=== PATIENT | male | born 1940 | race Caucasian/White ===

== ENCOUNTER → 2020-01-25 13:05 | Outpatient (CLI) | payer MEDICARE, SELFPAY ==
--- NOTE | 2020-01-25 | DI.MG.S_ITS ---
MALE BILATERAL DIGITAL DIAGNOSTIC MAMMOGRAM 3D/2D: 01/25/2020 CLINICAL: Left breast tenderness and lump. Baseline mammogram. No prior exams were available for comparison. There is a 2.6 cm x 2.2 cm x 1.9 cm irregular area of fibroglandular tissue in the left breast central to the nipple in the retroareolar region. This correlates as palpated and to the area of reported pain. No other significant masses, calcifications, or other findings are seen in either breast. IMPRESSION: INCOMPLETE: NEEDS ADDITIONAL IMAGING EVALUATION The 2.6 cm irregular area of fibroglandular tissue in the left breast is most compatible with gynecomastia. A targeted ultrasound is recommended to exclude underlying mass and will immediately follow. This exam was interpreted at Station ID: [id number]. Electronically Signed By: Ankit Kumar M.D. slc/:01/25/2020 13:46:31 ACR BI-RADS Category 0: Incomplete [id number]
--- NOTE | 2020-01-25 | DI.US.S_ITS ---
LIMITED ULTRASOUND OF LEFT BREAST: 01/25/2020 CLINICAL: Palpable left breast lump. Comparison is made to exam dated: 01/25/2020 [facility]. Color flow and real-time ultrasound of the left breast were performed. Estevez scale images of the real-time examination were reviewed. There is a benign area of fibroglandular tissue in the left breast central to the nipple in the retroareolar region. No retroareolar mass. IMPRESSION: BENIGN No left breast retroareolar mass. Benign left breast gynecomastia corresponding to the palpable abnormality. Clinical follow-up for gynecomastia is recommended. Exam findings were conveyed to the patient. This exam was interpreted at Station ID: [id number]. Electronically Signed By: Ankit Kumar M.D. slc/:01/25/2020 14:46:46 letter sent: Clinical Evaluation Ultrasound BI-RADS: 2 Benign
== END ==
PROVIDERS: Family Provider Family Medicine; PCP Family Medicine; Referring Provider Family Medicine; Visit Provider Family Medicine
DX: R92.8 Other abnormal and inconclusive findings on diagnostic imaging of breast (principal); N64.4 Mastodynia; N62 Hypertrophy of breast
CPT/HCPCS: 76642; 77066; G0279

== ENCOUNTER → 2020-05-02 08:43 | Outpatient (CLI) | payer MEDICARE, SELFPAY ==
[2020-05-02 11:47] LABS: COVID19 -Nasal RAPID Negative (Negative)
== END ==
PROVIDERS: Family Provider Family Medicine; PCP Family Medicine; Visit Provider Physician Assistant
DX: Z11.59 Encounter for screening for other viral diseases (principal)
CPT/HCPCS: 87635

== ENCOUNTER 2020-05-04 11:30 | Inpatient (IN) | payer MEDICARE, SELFPAY ==
[2020-04-19 13:01] VITALS: BMI 23.8
[2020-05-04] VITALS (18 sets, daily range): BP systolic 84–127; BP diastolic 45–81; PULSE 74–96; RESP 10–18; TEMP 35.8–36.7; O2SAT 93–99; BMI 21.2
--- NOTE | 2020-05-04 06:00 | DI.RAD.S_ITS ---
PROCEDURE: XR SHOULDER LT 1V INDICATIONS: post op total shoulder TECHNIQUE: 1 views of the shoulder were acquired. COMPARISON: [facility], CT, CT SHOULDER LEFT WITHOUT CONTRAST, 03/25/2020, 13:57. FINDINGS: Bones: Left shoulder humeral head arthroplasty is in the expected position. Degenerative change at the glenoid and AC joint appreciated. No unexpected fractures. No dislocation. No suspicious bony lesions. Visualized ribs appear intact. Soft tissues: No suspicious soft tissue calcifications. Medial postsurgical change the left upper arm. IMPRESSION: Satisfactory appearance of the left humeral head arthroplasty. Dictated by: Ankit Kumar M.D. on 05/04/2020 at 16:13 Approved by: Ankit Kumar M.D. on 05/04/2020 at 16:15
[2020-05-04] MEDS: ACETAMINOPHEN 325 MG TABLET 975 MG PO ×2 (12:18→20:26)
[2020-05-04] MEDS: CELECOXIB 200 MG CAPSULE PO (12:19)
[2020-05-04] MEDS: LACTATED RINGERS 1,000 ML 42 ML IV ×2 (12:20→15:21)
[2020-05-04] MEDS: PREGABALIN 75 MG CAPSULE PO (12:20)
--- NOTE | 2020-05-04 13:00 | PM.PREOP ---
Pre-operative Note COVID-19 COVID-19 status: Negative Result date/Date tested (Pos, Neg/Pending): 05/02/20 Interval Note History & Physical reviewed/Exam performed by Physician: Yes Changes to H&P: No
--- NOTE | 2020-05-04 13:29 | SUR.PREOP ---
Block start time 1315 [] . Monitoring initiated and maintained throughout procedure. Oxygen and medications given per anesthesiologist instructions. Patient remained stable throughout procedure, no adverse reactions noted. Block end time [1330].
[2020-05-04] MEDS: CEFAZOLIN 2 GM/100 ML FROZ.PIGGY IV (13:30)
[2020-05-04] MEDS: TRANEXAMIC ACID 1,000 MG VIAL 1000 MG INJ ×2 (13:48→15:19)
[2020-05-04] MEDS: BUPIVACAINE 0.5% W/ EPI (PF) 30 ML VIAL 10 ML INJ (14:00)
--- NOTE | 2020-05-04 14:04 | PM.PROC.1 ---
Procedures Date/Time Date of procedure: 05/04/20 Time of procedure: 13:15 General Procedure description: Ultrasound guided interscalene brachial plexus nerve block for post op pain control after left total shoulder arthroplasty by Dr. Silverio. Risk and benefits of procedure discussed with patient. ASA monitoring applied to patient. O2 given via nasal cannula. 1 mg Versed and 50 mcg fentanyl given for procedural sedation. Skin site was prepped with chlorhexidine and allowed to fully dry. Sterile gloves, mask, hat and probe cover were used to maintain sterility. 2% lidocaine and 30ga needle was used to make a small skin wheal at needle insertion site. Under ultrasound guidance, a 21ga 50mm Pajunk needle was directed into the interscalene groove (middle/anterior scalenes) near the brachial plexus. Patient reported no parasthesias. After negative aspiration, 20 mL 0.5% ropivicaine and 10mg dexamethasone were injected around brachial plexus. Patient tolerated procedure well.
--- NOTE | 2020-05-04 14:12 | SUR.OPER ---
Beach chair with Schlein shoulder positioner. Lower body on padded OR bed. Head in foam padded head cradle, secured with straps. Non-operative arm secured <90 degrees abduction. Pillow under knees. Safety belt at thigh. Cloth tape over blanket over lower legs.
[2020-05-04] MEDS: THROMBIN (RECOMBINANT) 5,000 UNIT VIAL 5000 UNIT TOP (14:30)
--- NOTE | 2020-05-04 15:37 | PM.OP.1 ---
Operative Date/Time/Diagnoses Date of procedure: 05/04/20 Time of procedure: 15:37 Pre-op diagnosis: Left shoulder osteoarthritis Post-op diagnosis: other (Left shoulder supraspinatus rotator cuff tear) Procedure & Clinicians Procedure: 1. Left total shoulder arthroplasty 2. Open repair of left supraspinatus rotator cuff tear Same procedure as scheduled: No (Rotator cuff tear done in addition to scheduled arthroplasty.) Indications: The patient has had progressively worsening left shoulder pain with radiographic changes consistent with arthritis. Non-operative management has failed and the patient has requested total shoulder replacement. The risks, benefits and alternatives to surgery were discussed with the patient prior to proceeding. Risks discussed included, but were not limited to, failure to relieve pain, stiffness, infection, nerve damage, deep venous thrombosis, pulmonary embolism, stroke, coma, heart attack, permanent paralysis and , as well as the potential need for eventual revision of the prosthetic. Surgeon: Chau Silverio Botany Professor: Ilene Moy Click Yes if Unassisted: No Anesthesia Type: General, Peripheral nerve block and Local Operative Notes Findings: Severe left shoulder osteoarthritis with 1 cm leading edge supraspinatus rotator cuff tear. Closure Type: primary Specimen(s): none sent Prosthetic devices, grafts, tissues, transplants, or devices: Implants used in this procedure manufactured by the [employer] and included a Eclipse stemless total shoulder system with a large cage screw, a 47 mm trunion, a 47/20 humeral head and a large [employer] VaultLock glenoid. In addition 4 Ar[employer] Swivelock anchors and 1 [employer] Corkscrew anchors were used to repair the supraspinatus and subscapularis tendons. Applied: implant(s) Estimated Blood Loss (mL): 100 Blood products transfused: none Procedure in detail: The patient was seen in the pre-operative area, where the patient identified the left shoulder as the operative site and this was marked with my initials. The patient received pre-operative antibiotics, underwent an interscalene block, and was taken to the operating room and placed on the operative table in the supine position. After satisfactory anesthesia, a full ?time out? was performed. The patient was repositioned in the ?beach chair? position using a dedicated positioner. All pressure points were well padded, and the knees were slightly bent to prevent tension on the sciatic nerves. The left arm was prepared from the fingers to the base of the neck with ChloroPrep in the usual fashion and draped through sterile drapes. An approximately 10 cm incision was created, starting at the clavicle above the coracoid process and extended towards the deltoid insertion. The deltopectoral interval was used to access the shoulder. The cephalic vein was taken medially. A self retaining retractor was placed. The upper centimeter of the pectoralis major tendon was released. The ?three sisters? were identified and cauterized. The axillary nerve was palpated and protected throughout the case. The biceps was released from its groove and tenodesed over the top of the pectoralis major tendon. The subscapularis was released from the lesser tuberosity with a subscapularis peel and tagged for later repair. The shoulder was dislocated and a cutting guide was used for the proximal humeral osteotomy in 30 degrees of retroversion. After removing all peripheral osteophytes, the trunion was sized. The central starter hole for the trunion was created. A proximal humeral protector was then placed. We then removed the self-retaining retractor and placed retractors to access the glenoid. The subscapularis was released with a ?360 degree release? with care being taken to protect the axillary nerve with the inferior portion of this procedure. The remnant of labrum and biceps stump were removed. The appropriate size reamer was chosen with the glenoid sizer, and the guide pin placed. The glenoid was appropriately reamed. The central hole was enlarged. The guide for the peripheral holes was used to create the superior hole and the inferior keel hole. The trial glenoid was placed with good stability. We then cemented the final implant into place after irrigating the peg holes and drying them with thrombin-soaked Gelfoam. The central peg was coated with bone graft for ingrowth. We returned our attention to the humerus, the proximal humeral protector was removed. The trunion was impacted into place and the cage screw placed through the trunion. Trial head was applied. Stability was checked with 50% posterior translation with spontaneous reduction, 45? of external rotation with the subscapularis held in the repaired position and 60? of internal rotation in the ?scarecrow position. This was felt to be satisfactory and the appropriate humeral head implant was opened and impacted into position. The joint was irrigated and the subscapularis was repaired using a ?speed bridge? technique. Initially we used a single [employer] corkscrew anchor which was double threaded to repair the supraspinatus tear to the greater tuberosity. The double row repair of the subscapularis was then performed which gave excellent reapproximation of the subscapularis to the lesser tuberosity. The top of the subscapularis was closed to the leading edge of the supraspinatus with a figure of 8 #2 TiCron to close the rotator interval. The deltopectoral interval was closed with interrupted 0 Vicryl. The subcutaneous layer was closed with 3-0 Vicryl, and the skin with a running 3-0 V-Lock suture and SteriStrips. An Aquacel Ag dressing was applied, the patient?s arm was placed in a sling, and the patient was taken to recovery having tolerated the procedure well. Complications: none Post-operative Condition: stable Disposition: PACU Plan for aftercare: The patient will be maintained on a standard total shoulder replacement protocol with passive range of motion limited to 90 degrees forward flexion, 0 degrees external rotation at the side, 0 degrees abduction and internal rotation to the body. The patient will receive aspirin and sequential compression devices for DVT prophylaxis. The patient will be discharged home when safe for the home environment, likely tomorrow.
[2020-05-04] MEDS: LACTATED RINGERS 1,000 ML 125 ML IV (18:25)
[2020-05-04] MEDS: TAMSULOSIN 0.4 MG CAPSULE PO (20:26)
[2020-05-04] MEDS: DOCUSATE 100 MG CAPSULE PO (20:26)
[2020-05-04] MEDS: dilTIAZem CD 120 MG CAP PO (20:26)
--- NOTE | 2020-05-05 00:37 | PC.NURSE ---
Pt reports weakness and numbness in L arm that is slowly improving.
[2020-05-05 05:30] VITALS: BP 104/66; PULSE 78; RESP 18; TEMP 36.5; O2SAT 95
[2020-05-05 06:19] LABS: Hemoglobin 13.5 g/dL (13.5-17.5); Mean Corpuscular HGB Conc 32.9 % (30-36); Mean Corpuscular Hemoglobin 31.7 PG (26-34); Mean Corpuscular Volume 96.5 fL (80-100); Platelet Count 220 X10^3/uL (150-400); Red Blood Cell Count 4.25 X10^6/uL (4.5-5.9); Red Cell Distribution Width 12.7 % (11.6-14.8); White Blood Cell Count 19.1 X10^3/uL (4.5-11.0)
--- NOTE | 2020-05-05 07:49 | PM.DS.1 ---
History of Present Illness History of Present Illness Date Patient Seen: 05/05/20 Time Patient Seen: 07:49 Chief complaint: Left Total Shoulder Arthroplasty Discharge Providers Provider Date of admission: 05/04/20 11:30 Primary care physician: Harrison Hernandez MD Consults: 05/04/20 17:00 Consult to Discharge Planning Routine Comment: Consult to Physical Therapy Evaluate & Treat Comment: Physician Instructions: Evaluate and Treat Discharge provider: Ilene Moy PA-C Exam Vital Signs (past 8 hours): - 05/04/20 23:59 05/05/20 05:30 Temperature 97.7 F 97.7 F Pulse Rate 96 H 78 Respiratory Rate 18 18 Blood Pressure 117/78 104/66 Pulse Oximetry 95 95 Oxygen Delivery Method Room Air Oxygen Flow Rate 0 Objective Labs Result Diagrams: 05/05/20 06:01 Labs: Laboratory Results - last 24 hr 05/05/20 06:01 WBC 19.1 H RBC 4.25 L Hgb 13.5 Hct 41.0 MCV 96.5 MCH 31.7 MCHC 32.9 RDW 12.7 Plt Count 220 PFSH Medical History (Updated 04/19/20 @ 13:18 by Chiquita Miller RN) A-fib Enlarged prostate Hearing impaired History of prosthetic unicompartmental arthroplasty of both knees HTN (hypertension) Neuropathy Osteoarthritis Pseudogout Psoriasis Surgical History (Updated 04/19/20 @ 13:13 by Chiquita Miller RN) History of surgery History of vasectomy Social History household members: spouse Smoking Status: Former smoker alcohol intake: former Discharge Plan Discharge Plan Patient Disposition: Home Discharge orders & Medications Prescriptions: New acetaminophen 325 mg Tablet 975 mg PO TID Qty: 40 RF: 0 docusate sodium [DOK] 100 mg Capsule 100 mg PO BID Qty: 40 RF: 0 ibuprofen 600 mg Tablet 600 mg PO Q6HR PRN (Reason: Fever/Mild Pain (1-3)) Qty: 40 RF: 0 oxycodone 5 mg Tablet 5 mg PO Q3HR PRN (Reason: Pain, Moderate (4-6)) Qty: 60 RF: 0 Continued aspirin 81 MG tablet,chewable 162 mg PO QDAY Qty: 30 RF: 0 diltiazem HCl 120 MG capsule,extended release 24hr 120 mg PO BID Qty: 180 RF: 0 tamsulosin 0.4 mg Capsule 0.4 mg PO BEDTIME RF: 0 ibuprofen 200 mg Tablet 200 mg PO DAILY PRN (Reason: Pain) RF: 0 Follow up/Referrals: Chau Silverio MD [Physician] - Harrison Hernandez MD [Primary Care Provider] - Diet/Activity/Treatments Diet: Diet as Tolerated Activity: You may use his left hand in front of your body below shoulder level. Lift no more than 1 lb with the left arm. You may do pendulum exercises with your left arm. Cold/Heat Therapy: Apply ice to the shoulder for 15 minutes of every hour as tolerated. Allow skin to return to room temp between icing. Skin/Wound/Dressing Care Report to your healthcare provider any signs of infection, such as:: chills, fever, night sweats, increased pain, unusual drainage and unusual redness Dressing: Dressing should remain in place until your 2 week postop visit. Call the office if dressing becomes saturated. Visit Report/Discharge Packet Instructions: DI for Prescription Opioid Use, DI for Shoulder Replacement Stand Alone Forms: Surgery Discharge Discharge Data Primary Care Provider: Harrison Hernandez Quality VTE Deep Vein Thrombosis/Pulmonary Embolism Present on Admission: No
[2020-05-05 08:00] VITALS: BP 100/62; PULSE 83; RESP 16; TEMP 36.7; O2SAT 94
[2020-05-05] MEDS: DOCUSATE 100 MG CAPSULE PO (08:55)
[2020-05-05] MEDS: ASPIRIN 81 MG CHEW TAB 162 MG PO (08:55)
[2020-05-05] MEDS: dilTIAZem CD 120 MG CAP PO (08:55)
[2020-05-05] MEDS: ACETAMINOPHEN 325 MG TABLET 975 MG PO (08:56)
--- NOTE | 2020-05-05 09:31 | PC.NURSE ---
Addendum entered by Georgiana Ortega R.N. 05/05/20 10:02: Empty beer can found in patients bathroom. They have discharged to [facility]. Found after they left. Noted....CLL,RN Original Note: Assess- Patient has a sling to his r.shoulder with an aquacel in place, worked with pt and is ready to go home to [place]. [facility] wnl, patient states that his fingers are still a bit numb but this is resolving. Given Tylenol for discomfort and helpful. Priority board given to patient for ferry ride home.
--- NOTE | 2020-05-05 10:59 | PT.IIE ---
Current Diagnoses Primary osteoarthritis, left shoulder (05/04/20) Surgery Performed Operation Date: 05/04/20 13:15 Actual Procedures p Total Shoulder Arthroplasty and open rotator cuff repair(Left) - Chau Silverio MD Surgical History (Last Updated 04/19/20 @ 13:13 by Chiquita Miller, RN) History of surgery History of vasectomy Medical History (Last Updated 04/19/20 @ 13:18 by Chiquita Miller, RN) A-fib Enlarged prostate Hearing impaired History of prosthetic unicompartmental arthroplasty of both knees HTN (hypertension) Neuropathy Osteoarthritis Pseudogout Psoriasis Physical Therapy Inpatient Evaluation/Re-Eval M1 PT/OT-IP Prior Functional Status Start: 05/05/20 08:44 Freq: NEEDED Status: Discharge Protocol: Document 05/05/20 10:54 DE (Rec: 05/05/20 11:20 DE [id number]) Medical Review Prior Functional Status Medical History Reviewed Yes Diet/Fluid Consistency Regular Communication WNL. No deficits noted. Able to make needs known. Mobility and Gait IND for all mobility and amb without AD or limitations at baseline. Activities of Daily Living and IADL's IND for all IDLs and IADLs including driving at baseline. Prior Functional Level (Other details) Hx of pseudogout affecting his L ankle. Social History Household Members spouse Living Arrangements House Number of Floors (Floors) Two Floors Number of Stairs To Enter/Railing? 2 SHAINA with no railing. 10 steps to upstairs bedroom with no railing but wall L side going up. Home Environment Standard Height Toilet,Walk in Shower Employment Status Retired Additional Social History Comment Pt lives with spouse who will be available at home most of the time to assist if needed. Family members also live closeby. Pt has a separate shower place, which is ~150 ft away from the main house. There is 1 step to get to the shower place. M2 PT-IP Current Condition Start: 05/05/20 08:44 Freq: NEEDED Status: Discharge Protocol: Document 05/05/20 10:54 DE (Rec: 05/05/20 11:20 DE [id number]) Physical Therapy Current Condition Current Condition Evaluation Date 05/05/20 Treatment Diagnosis L total shoulder replacement; Difficulty with performing ADLs. Onset Date 05/04/20 Precautions Shoulder Precautions Sling,Internal Rotation to Body,No External Rotation,No Abduction,Forward Flexion to 90 degrees,Pendulums M3 PT-IP Subjective Start: 05/05/20 08:44 Freq: NEEDED Status: Discharge Protocol: Document 05/05/20 10:54 DE (Rec: 05/05/20 11:20 DE [id number]) Subjective Physical Therapy Visit Type Type Initial Evaluation Visit Start Time 09:08 Visit Stop Time 09:32 Total Visit Minutes 24 Notes SPT Barrera led session under direct supervision of PT Hoa. Number of INSPECTOR REPAIRER [place] Visits 0 Physical Therapy Visit Comments Patient Comments Pt is agreeable to do PT. M4 PT-IP Mobility and Gait Start: 05/05/20 08:44 Freq: NEEDED Status: Discharge Protocol: Document 05/05/20 10:54 DE (Rec: 05/05/20 11:20 DE [id number]) PT-Bed Mobility Assessment Supine to Sit Supine to Sit Standby Assistance PT-Transfer Assessment Sit to and From Stand Sit to and from Stand Standby Assistance Equipment Transfer Assistive Device None,Gait Belt Orthotic/Prosthetic Devices or Brace: No Transfers Transfer Destination Chair Transfer Technique Amb Transfer Ability Level of Assist Standby Assistance Comments Mobility Comments Pt was lying supine in bed with elevated EOB. Spouse was present at bedside. Pt completed supine to sit at R side EOB from flat bed with SBA. Pt then performed sit to stand and amb ~5 ft to the sink with SBA. In standing in front of the mirror, sling fitting and pt education were provided. Pt then amb ~120 ft in the hallway to the stairs and back to the room with SBA. Pt demonstrated normal step- through gait pattern without any gait deviations. Pt performed 3 steps up and down x3 without railing with CGA. Pt used step-over gait pattern . Pt was steady without any LOB throughout amb and stair climbing. Pt amb back to the room and sat down in the chair with SBA. Call light placed within reach. Spouse remained in the room. Gait Assessment Gait Gait Assistance Required: Standby Assistance Distance (Feet) 120 Assistive Devices Assistive Device None,Gait Belt Orthotic/Prosthetic Devices or Brace: No Gait Deviations General Gait Pattern Within Normal Limits Comments Gait Comments See mobility comments. Stair Climbing Assessment Evaluation Level of Assist On Stairs Contact Guard Assistance Devices Stair Climbing Assistive Devices None Technique/Endurance Stair Climbing Direction Ascend and Descend Stair Climbing Technique Step Over Step Number of Steps Climbed 3 Query Text: Stair Climbing Set # Repetitions (reps) 3 Comments Stair Climbing Comments See mobility comments. PT-Balance Assessment Sitting Balance and Reactions Static Sitting Balance Ability Normal Dynamic Sitting Balance Ability Normal Standing Balance and Reactions Static Standing Balance Ability Normal Dynamic Standing Balance Ability Good M5 PT-IP Objective Assessments Start: 05/05/20 08:44 Freq: NEEDED Status: Discharge Protocol: Document 05/05/20 10:54 DE (Rec: 05/05/20 11:20 DE [id number]) Orientation Orientation/Cognition Level of Alertness Alert Orientation Name,Age,Birthday,Month,Date, Year,Day of Week,Place, Situation Language Function Ability No Deficits Noted Safety Awareness Understands Safety Issues Memory Description No Deficits Noted Gross Range of Motion Upper Extremity ROM Assessment Left Impaired Strength Upper Extremity Strength Assessment Left Impaired Coordination Assessment Gross Coordination Gross Coordination WNL Sensation Assessment Sensation Gross Sensation WNL Light Touch Intact Muscle Tone Muscle Tone WNL Yes M6 PT-IP Treatment Start: 05/05/20 08:44 Freq: NEEDED Status: Discharge Protocol: Document 05/05/20 10:54 DE (Rec: 05/05/20 11:20 DE [id number]) Physical Therapy Treatment Exercises Exercises Shoulder Pendulums,Elbow Flexion/Extension,Wrist ROM, Hand ROM Education Education Provided Precautions,Post-Op Packet, Safety Other Treatments Other Treatment Performed Pt was educated on shoulder precautions, safety, and role of PT. M7 PT-IP Assessment and Plan Start: 05/05/20 08:44 Freq: NEEDED Status: Discharge Protocol: Document 05/05/20 10:54 DE (Rec: 05/05/20 11:20 PR [id number]) PT Summary Assessment and Plan Potential Rehabilitation Potential Excellent Status of Condition at Evaluation Stable Summary Impairments Pain,ROM,Strength,Balance,Bed Mobility,Transfers,Gait, Activity Tolerance Progress Towards Goals Safe For Discharge Assessment Summary Ramses is a 79 yo male POD1 s/p L total shoulder replacement with hx of pseudogout affecting his L ankle. At baseline, pt was IND for all mobility, amb, and ADLs without AD or limitations. On evaluation, pt was CGA-SBA for all mobility, transfers, amb, and stair climbing. Pt amb ~ 120 ft and performed 3 steps x3 without railing. No unsteadiness or LOB was observed throughout session. PT anticipates pt will be safe to d/c home with assistance. Pt will benefit from outpatient PT to improve shoulder ROM and strength in the future. Frequency of Treatment Frequency Of Treatment Discharge Recommendations To Nursing Amount of Assist Needed Standby Assistance Discharge Recommendations PT Discharge Recommendations Home with Assistance, Outpatient PT Equipment Needed for Home Before PT recommended shower chair or Discharge stool to be able to rest his LUE during shower. Transportation Needs at Discharge Private Vehicle Treatment was provided by Barrera Ozuna SPT and supervised by Hoa Blanton, PT. I personally reviewed this note and agree with its contents.
--- NOTE | 2020-05-05 11:01 | CM.IDA ---
Initial DCP Assessment Note Pt is a 79 yo male, resident of [place], now POD#1 from left shoulder surgery w/ Dr Silverio PCP: Harrison Hernandez Payer: ANNEMARIE Reviewed chart, DC order from Ortho has already been initiated this morning. Met w/patient to introduce role. Patient is awaiting his morning therapy session. Patient is indp. at baseline and has planned to return home w/his partner Rayne to assist as needed. Patient feels confident at this time to return home w/family to assist and denies needs from this CIRCUIT COURT CLERK this morning. No needs expected from DC planning team although will remain available in case this changes today. Genia Artis, CIRCUIT COURT CLERK
--- NOTE | 2020-05-05 16:04 | P.PN_ITS ---
Subjective Subjective Date Patient Seen: 05/05/20 Interval history: Patient is POD#1 s/p left total shoulder arthoplasty with Dr. Silverio. Pain has been controlled. He has mobilized about the room. He is voiding appropriately and tolerating a diet. Does not some residual numbness in the thum b. He denies any shortness of breath, chest pain, chills, night sweats, subjective fever, pain with urination, frequency or urgency. No complaints. Exam Vital Signs (past 8 hours): Oxygen Delivery Method Room Air Oxygen Flow Rate 0 Narrative Exam Narrative: 79 year old male resting in bed. Alert and oriented in no acute distress. Aquacel dressing in place is CDI. Patient wearing sling. Patient able to move all fingers, wrist, and elbow. Sensation intact to light touch. Palpable radial pulse. Objective Labs Result Diagrams: 05/05/20 06:01 Labs: Laboratory Results - last 24 hr 05/05/20 06:01 WBC 19.1 H RBC 4.25 L Hgb 13.5 Hct 41.0 MCV 96.5 MCH 31.7 MCHC 32.9 RDW 12.7 Plt Count 220 PFSH Medical History A-fib Enlarged prostate Hearing impaired History of prosthetic unicompartmental arthroplasty of both knees HTN (hypertension) Neuropathy Osteoarthritis Pseudogout Psoriasis Surgical History History of surgery History of vasectomy Social History household members: spouse Smoking Status: Former smoker alcohol intake: former Assessment & Plan Assessment & Plan narrative: -Patient is POD# 1 s/p total shoulder arthroplasty, doing well. -Elevated WBC this morning of 19.1. Patient is afebrile, feeling well and no findings on exam or symptoms to suggest infection so this is likely due to a mixture of stress reaction from surgery and administration of steroid. Patient was advised to monitor for signs of infection such as fevers, chills, night sweats and report any symptoms. -Continue home dose of ASA for DVT prophylaxis. Prescription for Oxycodone provided for postoperative pain control. -Mobilize with PT today. Reviewed activity restrictions and corrected his sling use. His is available as caregiver at home. -Discharge to home today. Follow up outpatient in 2 weeks as scheduled. Quality VTE Deep Vein Thrombosis/Pulmonary Embolism Present on Admission: No
== END 2020-05-05 09:55 | disposition home or self-care (01) | DRG 483 ==
PROVIDERS: Admitting Provider Orthopaedic Surgery; Family Provider Family Medicine; PCP Family Medicine; Referring Provider Orthopaedic Surgery; Visit Provider Orthopaedic Surgery
PROC: 0RRK0JZ Replacement of Left Shoulder Joint with Synthetic Substitute, Open Approach (ICD-10-PCS; CPT 23472; principal; 2020-05-04 13:15)
DX: M19.012 Primary osteoarthritis, left shoulder (principal); I48.91 Unspecified atrial fibrillation; N40.1 Benign prostatic hyperplasia with lower urinary tract symptoms; M11.20 Other chondrocalcinosis, unspecified site; M75.112 Incomplete rotator cuff tear or rupture of left shoulder, not specified as traumatic; D72.829 Elevated white blood cell count, unspecified; Z11.59 Encounter for screening for other viral diseases
CPT/HCPCS: 36415; 64450; 73030; 85027; 87635; 97161; C1776; J0690; J1100; J2250; J2405; J2704; J3010

== ENCOUNTER → 2020-11-17 10:07 | Outpatient (CLI) | payer MEDICARE, SELFPAY ==
[2020-05-04 16:51] VITALS: BMI 21.2
--- NOTE | 2020-11-17 | DI.ECHO.S_ITS ---
[place] +---------+ [facility] +---------+ : : [address] : [address] : : : : [id number] : : : : Phone: [phone] +---------+ Echocardiogram Report + + :Name: CLEMENTINA ALCANTAR Study Date: 11/17/2020 Height: 69 in : :[facility] ReadingLocation: Weight: 150 lb : : Gender: Male BSA: 1.8 m2 : :: 1940 Age: 80 yrs BP: 117/77 mmHg: :Reason For Study: Mitral Valve- Regurgitation : :Ordering Physician: Kurt : :Jackson Murry Performed By: Daniel Lewis : :Referring: KURT MURRY : + + Interpretation Summary 1) Normal left ventricular size with mildly to moderately reduced systolic function (EF 40-45%). 2) Normal right ventricular size and function. 3) Severe left atrial enlargement. 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 5) There is severe mitral regurgitation that is anteriorly directed (towards the interatrial septum). 6) The right ventricular systolic pressure is estimated to be at least 26 mmHg based on an estimated right atrial pressure of 3 mm Hg. 7) No prior Echo available for comparison. Procedure: A two-dimensional transthoracic echocardiogram with color flow and Doppler was performed. The study quality was technically adequate. There is no prior echocardiogram noted for this patient. The patient was in atrial fibrillation with heart rates between 70-87 bpm during the exam. Left Ventricle: The left ventricle is normal in size and wall thickness. Left ventricular systolic function is mild to moderately reduced. The ejection fraction is estimated to be 40-45%. There is moderate global hypokinesis of the left ventricle. Diastolic function could not be accurately assessed due to confounding valvular disease. Right Ventricle: The right ventricle is normal in size and function. Atria: The left atrium is severely dilated. Right atrial size is normal. There is no Doppler evidence for an interatrial shunt. Mitral Valve: The mitral valve leaflets appear mildly thickened, but open well. 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 There is severe mitral regurgitation. The mitral regurgitant jet is eccentrically directed. The mitral regurgitant jet is anteriorly directed, which is consistent with posterior leaflet pathology. Flow reversal noted in pulmonary veins consistent with significant mitral regurgitation. Aortic Valve: There is mild aortic valve sclerosis. There is no aortic valve stenosis. There is trace aortic regurgitation. Tricuspid Valve: The tricuspid valve is normal in structure and function. There is mild tricuspid regurgitation. The right ventricular systolic pressure is estimated to be at least 26 mmHg based on an estimated right atrial pressure of 3 mm Hg. Pulmonic Valve: The pulmonic valve is normal in structure and function. There is mild pulmonic regurgitation. Great Vessels: The aortic root is normal size. The dimensions of the ascending aorta are normal. The IVC is of normal diameter and collapses greater than 50% with a sniff. This suggests a low right atrial pressure of 3 mm Hg. Pericardium/ Pleura There is no pericardial effusion. There is no pleural effusion. MMode/2D Measurements & Calculations LVIDd: 5.2 cm LVOT diam: 2.1 cm LVIDs: 4.0 cm Ao root diam: 3.3 cm FS: 21.7 % asc Aorta Diam: 3.0 cm IVSd: 0.79 cm LVPWd: 0.96 cm LV barbosa. diameter/BSA (cm/m^2): 2.8 LV sys. diameter/BSA (cm/m^2): 2.2 LA A2 area: 30.9 cm2 RA long axis: 5.4 cm LA A4 area: 26.6 cm2 RA area: 17.5 cm2 LA length (vol): 6.0 cm RA vol: 48.1 ml LA vol: 117.0 ml RA : 26.3 ml/m2 LA vol index: 64.0 ml/m2 IVC diam: 1.4 cm TAPSE: 2.6 cm Doppler Measurements & Calculations Ao V2 max: 115.3 cm/sec LVOT Max Vinnie: 66.7 cm/sec Ao V2 mean: 81.6 cm/sec LV V1 max P.8 mmHg Ao max P.3 mmHg LV V1 VTI: 11.3 cm Ao mean P.0 mmHg ASHLY(I,D): 2.2 cm2 Ao V2 VTI: 17.7 cm ASHLY(V,D): 2.0 cm2 sev ratio: 0.64 ASHLY indexed to BSA (cm^2/m^2): 1.2 TR max vinnie: 241.2 cm/sec MR VTI: 162.8 cm TR max P.3 mmHg PA V2 max: 84.5 cm/sec PA V2 mean: 56.4 cm/sec PA mean P.4 mmHg PA pr(Accel): 51.0 mmHg SV(LVOT): 38.9 ml Reading Physician:12:08 PM
== END ==
PROVIDERS: Family Provider Family Medicine; PCP Family Medicine; Referring Provider Internal Medicine Cardiovascular Disease; Visit Provider Internal Medicine Cardiovascular Disease
DX: I08.3 Combined rheumatic disorders of mitral, aortic and tricuspid valves (principal)
CPT/HCPCS: 93306

== ENCOUNTER 2021-09-15 18:09 | Emergency (ER) | payer MEDICARE, SELFPAY ==
[2020-05-04 16:51] VITALS: BMI 21.2
[2021-09-15] VITALS (10 sets, daily range): BP systolic 114–154; BP diastolic 56–71; PULSE 44–52; RESP 14–24; TEMP 36.8; O2SAT 78–100; BMI 20.9
--- NOTE | 2021-09-15 18:27 | DI.RAD.S_ITS ---
PROCEDURE: XR CHEST 1V INDICATIONS: chest pain TECHNIQUE: One view of the chest was acquired. COMPARISON: [facility], CR, XR CHEST 1 VIEW, 06/08/2021, 17:36. [facility], CR, CHEST 2 VIEW, 08/22/2016, 12:07. FINDINGS: Surgical changes and devices: Redemonstrated sternotomy wires, valve prosthesis, left atrial appendage clip. Lungs and pleura: Lungs are clear. No pleural effusions or pneumothorax. Mediastinum: No widening of the superior mediastinum. Persistent enlargement of the cardiac silhouette. Bones and chest wall: No suspicious bony lesions. Overlying soft tissues appear unremarkable. IMPRESSION: No acute cardiopulmonary abnormality. Dictated by: Zion Campbell M.D. on 09/15/2021 at 19:38 Approved by: Zion Campbell M.D. on 09/15/2021 at 19:39
--- NOTE | 2021-09-15 18:44 | ED_ITS ---
HPI - Dizziness General Chief Complaint: Dizziness Stated Complaint: DIZZY LOW BLOOD PRESSURE Time Seen by Provider: 09/15/21 18:44 Source: patient Mode of arrival: Ambulatory History of Present Illness HPI Narrative: 80-year-old male smoker with extensive medical history including CABG, valve repair done at [facility] in May, presents with his in the chief complaint of a very brief episode of sharp and stabbing left-sided chest pain that started while at rest at about noon today. He states it lasted somewhere between 2 and 3 minutes, denies any provocation, palliation or radiation. He denies associated symptoms such as dizziness, weakness, lightheadedness or shortness of breath. He denies nausea, vomiting or diarrhea. He presented to the clinic on [place] and was encouraged to come here for evaluation. He has been taking his medications as directed and states that he was recently placed on valsartan. He denies any recent issues, any exertional symptoms or other episodes of pain since his surgery. Related Data Home Medications Medication Instructions Recorded Confirmed aspirin 81 mg chewable tablet 162 mg PO QDAY #30 ctb 03/05/16 05/04/20 ibuprofen 200 mg tablet 200 mg PO DAILY PRN 04/19/20 05/04/20 tamsulosin 0.4 mg capsule 0.4 mg PO BEDTIME 04/19/20 05/04/20 Previous Rx's Medication Instructions Recorded diltiazem HCl 120 mg 120 mg PO BID #180 tab 08/10/16 capsule,extended release 24 hr acetaminophen 325 mg tablet 975 mg PO TID #40 tab 05/05/20 docusate sodium 100 mg capsule 100 mg PO BID #40 cap 05/05/20 (DOK) ibuprofen 600 mg tablet 600 mg PO Q6HR PRN #40 tab 05/05/20 oxycodone 5 mg tablet 5 mg PO Q3HR PRN #60 tab 05/05/20 Allergies Allergy/AdvReac Type Severity Reaction Status Date / Time prednisone [PREDNISONE] AdvReac Unknown SLEEPLESSNE Verified 05/04/20 12:18 SS Review of Systems Review of Systems Narrative: GENERAL: Denies chills, fatigue, malaise, fever, sweats. HEENT: Denies sinus pain, ear pain, sore throat, difficulty swallowing, dizziness. RESPIRATORY: Denies dyspnea, cough, wheezing, hemoptysis, sputum. CARDIOVASCULAR: See HPI GASTROINTESTINAL: Denies nausea, vomiting, abdominal pain, diarrhea, constipation, melena. : Denies dysuria, frequency, incontinence, hematuria, urinary retention. MUSCULOSKELETAL: denies weakness, joint pain, or bony pain SKIN: Denies rash, skin lesions, or other NEUROLOGIC: Denies weakness, headache, numbness, change in speech, confusion, seizures, incoordination. PSYCHIATRIC: No concerning psychosocial issues. 12 point review of systems is negative except for those stated above Patient History Medical History A-fib Enlarged prostate Hearing impaired History of prosthetic unicompartmental arthroplasty of both knees HTN (hypertension) Neuropathy Osteoarthritis Pseudogout Psoriasis Surgical History History of surgery History of vasectomy Social History household members: spouse Smoking Status: Former smoker alcohol intake: former Smoking Status: Former smoker alcohol intake frequency: 0-2 drinks per day Alcohol type: beer Substance Use Type: does not use Exam Narrative Exam Narrative: GENERAL: [80] year old patient appears stated age. Well-developed patient, in mild distress. HEAD: Atraumatic. Normocephalic. EYES: Pupils equal round and reactive. Extraocular motions intact. No scleral icterus. No injection or drainage. ENT: Nose without bleeding, purulent drainage. Throat without erythema, tonsillar hypertrophy or exudate. Airway patent. NECK: Trachea midline. Non tender CARDIOVASCULAR: Slightly bradycardic but regular rhythm without murmurs, gallops, or rubs. RESPIRATORY: Clear to auscultation. Breath sounds equal bilaterally. No wheezes, rales, or rhonchi. GASTROINTESTINAL: Abdomen soft, non-tender, nondistended. EXTREMITIES: No edema or joint tenderness. BACK: Nontender without deformity or crepitance. No flank tenderness. NEURO: AOx3. SKIN: No rash or erythema of visible areas Initial Vital Signs Initial Vital Signs: Vital Signs Temperature 98.2 F 09/15/21 18:14 Pulse Rate 52 L 09/15/21 18:14 Respiratory Rate 18 09/15/21 18:14 Blood Pressure 114/56 L 09/15/21 18:14 Pulse Oximetry 100 09/15/21 18:14 Course Orders Ordered: ED Orders 09/15/21 18:21 EKG-12 Lead Stat 09/15/21 18:27 XR chest 1V Stat Complete Blood Count AUTO DIFF Stat Comprehensive Metabolic Panel Stat Lipase Stat Magnesium Stat Troponin & CK Cardiac Panel Stat EKG-12 Lead Stat 09/15/21 20:30 EKG-12 Lead Stat Vital Signs Vital signs: Vital Signs - 8 hr 09/15/21 18:14 09/15/21 18:42 09/15/21 18:45 Temperature 98.2 F Pulse Rate 52 L 50 L 47 L Respiratory Rate 18 16 18 Blood Pressure 114/56 L 129/68 Pulse Oximetry 100 78 L 99 09/15/21 19:00 Temperature Pulse Rate 46 L Respiratory Rate 14 Blood Pressure 132/66 Pulse Oximetry 100 MDM - Dizziness Lab Data Result diagrams: 09/15/21 18:27 09/15/21 18:27 Labs: Lab Results 09/15/21 09/15/21 Range/Units 18:27 18:27 WBC 7.2 (4.5-11.0) X10^3/uL RBC 3.97 L (4.5-5.9) X10^6/uL Hgb 12.1 L (13.5-17.5) g/dL Hct 35.7 L (41-53) % MCV 90.1 (80-100) fL MCH 30.6 (26-34) PG MCHC 34.0 (30-36) % RDW 15.3 H (11.6-14.8) % Plt Count 212 (150-400) X10^3/uL Neut % (Auto) 59.9 (50-75) % Lymph % (Auto) 24.2 L (25-40) % Rock % (Auto) 11.4 (3-14) % Eos % (Auto) 3.7 (2-4) % Baso % (Auto) 0.8 (0-2) % Neut # (Auto) 4300 (2200-8268) /uL Lymph # (Auto) 1700 (9271-2067) /uL Rock # (Auto) 800 (0-900) /uL Eos # (Auto) 300 (0-450) /uL Baso # (Auto) 100 (0-100) /uL Sodium 139 (137-145) mmol/L Potassium 3.8 (3.4-5.1) mmol/L Chloride 106 (98-107) mmol/L Carbon Dioxide 25 (22-32) mmol/L BUN 23 H (9-20) mg/dL Creatinine 1.03 (0.66-1.25) mg/dL Estimated GFR > 60 (>60) mL/min BUN/Creatinine Ratio 22.3 H (6-22) Glucose 110 (80-110) mg/dL Calcium 8.7 (8.4-10.2) mg/dL Magnesium 2.2 (1.6-2.3) mg/dL Total Bilirubin 0.2 (0.2-1.3) mg/dL AST 35 (17-59) IU/L ALT 21 (<50) IU/L Alkaline Phosphatase 62 (38-126) U/L Total Creatine Kinase 81 (55-170) U/L CK-MB (CK-2) TNP CK-MB (CK-2) Rel Index TNP Troponin I < 0.012 (0.01-0.034) ng/mL Total Protein 6.8 (6.3-8.2) g/dL Albumin 4.0 (3.5-5.0) g/dL Globulin 2.8 (1.7-4.1) g/dL Albumin/Globulin Ratio 1.4 (1.0-2.8) Lipase 165 (23-300) U/L ECG Data Interpretation: EKG is sinus bradycardia with regular rhythm and rate [50 ] and free of any signs of ischemia or ectopy. No ST segmental elevation or depression. No T wave inversions MDM Narrative Medical decision making narrative: Multiple causes of chest pain considered including OK, PE, pneumothorax, pneumonia, aortic dissection, and pleurisy. Patient reports no radiation, no diaphoresis, no provocation with exertion, and no vomiting Patient history, physical, labs, EKGs very reassuring. Discussed with on-call Cardiology, we sure the opinion that given his description of discomfort, normal troponin 7 or more hours after the brief episode of pain without any recurrence of pain, like of ischemic changes on EKG this is unlikely to be ischemic in nature. Other considerations including pericarditis, pulmonary embolism, pneumothorax considered but thought unlikely given history, physical, and diagnostics. Patient given extensive return precautions and questions have been answered to his apparent satisfaction Discharge Plan Departure Patient Disposition: Home Clinical Impression: Atypical chest pain Activity Restrictions/Additional Instructions: *You have been diagnosed with [atypical chest pain] *What to do: *Please continue to take your regular medications as directed. [ ] New medication prescriptions sent to your pharmacy: [ ] [ ] New medication written as a paper prescription [x ] No new medications given *Please follow up with your primary care provider in 2-3 days, call for an appointment. Let them know you were seen in the Emergency Department and that we ask that you be seen in follow up. We will electronically transmit a record of today's note if your PCP is in our system *If you do not have a primary care provider please contact the [facility] Resource line at [phone]. They will ask some questions about your medical history and help get you set up with a doctor in the community. *Return to Emergency Department if you should have any new, worsening or concerning symptoms, such as [fever greater than 101 F, shaking chills, worsening pain, persistent vomiting or other bothersome symptoms] Prescriptions: No Action aspirin 81 MG tablet,chewable 162 mg PO QDAY Qty: 30 0RF diltiazem HCl 120 MG capsule,extended release 24hr 120 mg PO BID Qty: 180 0RF tamsulosin 0.4 mg Capsule 0.4 mg PO BEDTIME 0RF ibuprofen 200 mg Tablet 200 mg PO DAILY PRN (Reason: Pain) 0RF acetaminophen 325 mg Tablet 975 mg PO TID Qty: 40 0RF docusate sodium [DOK] 100 mg Capsule 100 mg PO BID Qty: 40 0RF ibuprofen 600 mg Tablet 600 mg PO Q6HR PRN (Reason: Fever/Mild Pain (1-3)) Qty: 40 0RF oxycodone 5 mg Tablet 5 mg PO Q3HR PRN (Reason: Pain, Moderate (4-6)) Qty: 60 0RF Referrals: Harrison Hernandez MD [Primary Care Provider] -
[2021-09-15 18:53] LABS: Add Manual Diff / Slide Review NO; Basophils Absolute Auto 100 /uL (0-100); Basophils Percent Auto 0.8 % (0-2); Eosinophils Absolute Auto 300 /uL (0-450); Eosinophils Percent Auto 3.7 % (2-4); Hematocrit 35.7 % (41-53); Hemoglobin 12.1 g/dL (13.5-17.5); Lymphocytes Absolute Auto 1700 /uL (1100-4500); Lymphocytes Percent Auto 24.2 % (25-40); Mean Corpuscular Hemoglobin 30.6 PG (26-34); Mean Corpuscular Volume 90.1 fL (80-100); Monocytes Absolute Auto 800 /uL (0-900); Monocytes Percent Auto 11.4 % (3-14); Neutrophils Absolute Auto 4300 /uL (1500-7000); Neutrophils Percent Auto 59.9 % (50-75); Platelet Count 212 X10^3/uL (150-400); Red Blood Cell Count 3.97 X10^6/uL (4.5-5.9); Red Cell Distribution Width 15.3 % (11.6-14.8); White Blood Cell Count 7.2 X10^3/uL (4.5-11.0)
--- NOTE | 2021-09-15 19:05 | PC.NURSE ---
Per provider, put defib pads on patient. Pt denies chest pain symptoms at this time.
[2021-09-15 19:08] LABS: Alanine Aminotransferase 21 IU/L (<50); Albumin Globulin Ratio 1.4 (1.0-2.8); Alkaline Phosphatase 62 U/L (38-126); Aspartate Aminotransferase 35 IU/L (17-59); BUN Creatinine Ratio 22.3 (6-22); Bilirubin Total 0.2 mg/dL (0.2-1.3); Blood Urea Nitrogen 23 mg/dL (9-20); Calcium 8.7 mg/dL (8.4-10.2); Carbon Dioxide 25 mmol/L (22-32); Chloride 106 mmol/L (98-107); Creatine Kinase 81 U/L (55-170); Estimated Glomerular Filt Rate > 60 mL/min (>60); Globulin 2.8 g/dL (1.7-4.1); Glucose 110 mg/dL (80-110); HEMOLYSIS < 15 (0-50); Lipase 165 U/L (23-300); Magnesium 2.2 mg/dL (1.6-2.3); Potassium 3.8 mmol/L (3.4-5.1); Sodium 139 mmol/L (137-145); Total Protein 6.8 g/dL (6.3-8.2)
[2021-09-15 19:19] LABS: Troponin I < 0.012 ng/mL (0.01-0.034)
== END 2021-09-15 21:39 | disposition home or self-care (01) ==
PROVIDERS: Emergency Provider Emergency Medicine; Family Provider Family Medicine; PCP Family Medicine
DX: R07.89 Other chest pain (principal); Z87.891 Personal history of nicotine dependence
CPT/HCPCS: 36415; 71045; 80053; 82550; 83690; 83735; 84484; 85025; 93005; 99284

== ENCOUNTER → 2021-12-21 08:38 | Outpatient (CLI) | payer MEDICARE, SELFPAY ==
[2020-05-04 16:51] VITALS: BMI 21.2
--- NOTE | 2021-12-21 | DI.ECHO.S_ITS ---
[place] +---------+ Hospital +---------+ : : [address] : [address] : : : : [phone] : : : : Phone: [phone] : : [phone] +---------+ Echocardiogram Report + + :Name: CLEMENTINA ALCANTAR Study Date: 12/21/2021 Height: 69 in : :[facility] ReadingLocation: Weight: 145 lb : : Gender: Male BSA: 1.8 m2 : :: 1940 Age: 81 yrs BP: 118/74 mmHg: :Reason For Study: CARDIOMYOPATHY : :Ordering Physician: ALEXX, : :KURT Performed By: Triny Bender : :Referring: KURT MURRY : + + Interpretation Summary 1) Normal left ventricular size with mildly to moderately reduced systolic function (EF 40-45%). 2) Mildly enlarged right ventricle with mildly to moderately reduced systolic function. 3) The left atrium is severely dilated. 4) The mitral valve has been surgically repaired and an annuloplasty ring sewn in place (mean gradient 5.8mm Hg). Mild mitral regurgitation present. 5) The right ventricular systolic pressure is estimated to be at least 25 mmHg based on an estimated right atrial pressure of 3 mm Hg. 6) Compared to the Echo done 06/09/2021, LVEF has improved from about 35% to 40- 45% on this study. Procedure: A two-dimensional transthoracic echocardiogram with color flow and Doppler was performed. The study quality was technically adequate. Comparison is made with the echocardiogram of 06/09/2021. The patient was in sinus bradycardia with heart rates between 55-60 bpm during the exam. Left Ventricle: The left ventricle is normal in size. There is mild concentric left ventricular hypertrophy. The ejection fraction is estimated to be 40-45%. There is mild to moderate global hypokinesis of the left ventricle. Right Ventricle: The right ventricle is mildly dilated. Right ventricular systolic function is mild to moderately reduced. Atria: The left atrium is severely dilated. The right atrium is mildly dilated. There is no Doppler evidence for an interatrial shunt. Mitral Valve: The mitral valve leaflets are mildly calcified. An annuloplasty ring is noted in the mitral position. Calcified mitral apparatus. The mitral valve mean gradient is 5.8 mmHg. There is mild mitral regurgitation. Aortic Valve: The aortic valve is trileaflet. The aortic valve opens well. The aortic valve is mildly calcified. There is no aortic valve stenosis. There is mild aortic regurgitation. Tricuspid Valve: The tricuspid valve leaflets are thin and pliable. There is mild tricuspid regurgitation. The right ventricular systolic pressure is estimated to be at least 25 mmHg based on an estimated right atrial pressure of 3 mm Hg. Pulmonic Valve: The pulmonic valve leaflets are thin and pliable; valve motion is normal. There is mild pulmonic regurgitation. Great Vessels: The aortic root is normal size. The dimensions of the ascending aorta are normal. The IVC is of normal diameter and collapses greater than 50% with a sniff. This suggests a low right atrial pressure of 3 mm Hg. Pericardium/ Pleura There is no pericardial effusion. There is no pleural effusion. MMode/2D Measurements & Calculations LVIDd: 4.5 cm LVOT diam: 2.2 cm LVIDs: 3.6 cm Ao root diam: 3.4 cm FS: 20.6 % asc Aorta Diam: 3.2 cm EPSS: 1.1 cm Ao Arch Diam (Prox Trans): 2.5 cm IVSd: 0.84 cm LVPWd: 1.2 cm LV barbosa. diameter/BSA (cm/m^2): 2.5 LV sys. diameter/BSA (cm/m^2): 2.0 LA A2 area: 25.1 cm2 RA long axis: 5.7 cm LA A4 area: 24.1 cm2 RA area: 20.3 cm2 LA length (vol): 5.9 cm RA vol: 61.9 ml LA vol: 87.2 ml RA : 34.4 ml/m2 LA vol index: 48.4 ml/m2 IVC diam: 1.9 cm RVD1 (basal): 4.2 cm RVD2 (mid): 3.5 cm TAPSE: 1.2 cm Doppler Measurements & Calculations Ao V2 max: 158.5 cm/sec LVOT Max Vinnie: 87.4 cm/sec Ao V2 mean: 112.1 cm/sec LV V1 max P.1 mmHg Ao max P.0 mmHg LV V1 VTI: 20.4 cm Ao mean P.8 mmHg ASHLY(I,D): 2.1 cm2 Ao V2 VTI: 37.5 cm ASHLY(V,D): 2.1 cm2 sev ratio: 0.54 ASHLY indexed to BSA (cm^2/m^2): 1.1 MV E max vinnie: 100.1 cm/sec TR max vinnie: 236.6 cm/sec MV A max vinnie: 50.2 cm/sec TR max P.4 mmHg MV E/A: 2.0 PA V2 max: 124.5 cm/sec Med Peak E' Vinnie: 6.1 cm/sec PA V2 mean: 73.9 cm/sec E/E' med: 16.3 PA mean P.6 mmHg Lat Peak E' Vinnie: 11.4 cm/sec PA Accel Time: 0.11 sec E/E' lat: 8.8 E/e' average: 12.5 MV dec time: 0.36 sec MVA(VTI): 2.2 cm2 MV V2 mean: 57.0 cm/sec SV(LVOT): 77.7 ml MV mean P.5 mmHg MV V2 VTI: 35.4 cm Reading Physician:02:05 PM
== END ==
PROVIDERS: Family Provider Family Medicine; PCP Family Medicine; Referring Provider Internal Medicine Cardiovascular Disease; Visit Provider Internal Medicine Cardiovascular Disease
DX: I42.9 Cardiomyopathy, unspecified (principal); I08.3 Combined rheumatic disorders of mitral, aortic and tricuspid valves
CPT/HCPCS: 93306

== ENCOUNTER 2021-12-26 20:38 | Emergency (ER) | payer MEDICARE, SELFPAY ==
[2020-05-04 16:51] VITALS: BMI 21.2
[2021-12-26 20:45] VITALS: BP 119/56; PULSE 62; RESP 18; TEMP 36.6; O2SAT 96
--- NOTE | 2021-12-26 23:35 | ED.EYEPROB ---
HPI - Eye Problem General Chief complaint: Eye Problems Stated complaint: something stuck in rt eye Time Seen by Provider: 12/26/21 23:12 Source: patient Mode of arrival: Ambulatory History of Present Illness HPI Narrative: 81-year-old male former smoker with history of chronic AFib presents with his in the chief complaint of foreign body sensation in his right eye over the course of the day. He states he was walking across the grassy field when he felt something fly into his eye earlier today. He was seen and evaluated by paramedics who flushed his eye but he still feels like something is in there. He states he will need his tetanus updated. He does not wear contacts. He denies any blurred or double vision. He is otherwise well and free of complaint. He denies any possibility of metal fragments, welding or UV exposure Related Data Home Medications Medication Instructions Recorded Confirmed aspirin 81 mg chewable tablet 162 mg PO QDAY ##30 03/05/16 05/04/20 ibuprofen 200 mg tablet 200 mg PO DAILY PRN Pain 04/19/20 05/04/20 tamsulosin 0.4 mg capsule 0.4 mg PO BEDTIME 04/19/20 05/04/20 Previous Rx's Medication Instructions Recorded diltiazem HCl 120 mg 120 mg PO BID #180 tabs 08/10/16 capsule,extended release 24 hr acetaminophen 325 mg tablet 975 mg PO TID #40 tabs 05/05/20 docusate sodium 100 mg capsule 100 mg PO BID #40 caps 05/05/20 (DOK) ibuprofen 600 mg tablet 600 mg PO Q6HR PRN Fever/Mild Pain 05/05/20 (1-3) #40 tabs oxycodone 5 mg tablet 5 mg PO Q3HR PRN Pain, Moderate 05/05/20 (4-6) #60 tabs Allergies Allergy/AdvReac Type Severity Reaction Status Date / Time prednisone [PREDNISONE] AdvReac Unknown SLEEPLESSNE Verified 05/04/20 12:18 SS Review of Systems Review of Systems Narrative: GENERAL: Denies chills, fatigue, malaise, fever, sweats. HEENT: See HPI RESPIRATORY: Denies dyspnea, cough, wheezing, hemoptysis, sputum. CARDIOVASCULAR: Denies chest pain, palpitations, orthopnea, edema, GASTROINTESTINAL: Denies nausea, vomiting, abdominal pain, diarrhea, constipation, melena. : Denies dysuria, frequency, incontinence, hematuria, urinary retention. MUSCULOSKELETAL: denies weakness, joint pain, or bony pain SKIN: Denies rash, skin lesions, or other NEUROLOGIC: Denies weakness, headache, numbness, change in speech, confusion, seizures, incoordination. PSYCHIATRIC: No concerning psychosocial issues. 12 point review of systems is negative except for those stated above Patient History Medical History A-fib Enlarged prostate Hearing impaired History of prosthetic unicompartmental arthroplasty of both knees HTN (hypertension) Neuropathy Osteoarthritis Pseudogout Psoriasis Surgical History History of surgery History of vasectomy Social History household members: spouse Smoking Status: Former smoker alcohol intake: former Smoking Status: Former smoker alcohol intake frequency: 0-2 drinks per day Alcohol type: beer Substance Use Type: does not use Exam Narrative Exam Narrative: GEN: AOx3 and in mild distress EYES: Pupils are equal, round, and reactive to light and accommodation. Extraoccular muscles are intact bilaterally. There is no subconjunctival hemorrhage or exudate. Discomfort nearly completely resolved after instilling proparacaine drops in right eye. No obvious foreign body noted under Wood's lamp, upper lid everted. There is an obvious corneal abrasion noted with use of fluorescein under UV lamp at the 12 o'clock position. CHEST: Lungs are clear to auscultation bilaterally and free of wheezes, rales, or rhonchi. Heart rate is regular rhythm, there are no murmurs, clicks, rubs, or gallops. There is no chest wall tenderness. ABD: Abdomen is soft and nontender. There is no guarding or rebound. Bowel sounds are normal in all 4 quadrants. There is no mass or organomegaly. EXT: Full painless ROM of all extremities with no loss of sensation or strength. SKIN: Warm, pink, and dry. No erythema or rash Initial Vital Signs Initial Vital Signs: Vital Signs Temperature 97.9 F 12/26/21 20:45 Pulse Rate 62 12/26/21 20:45 Respiratory Rate 18 12/26/21 20:45 Blood Pressure 119/56 L 12/26/21 20:45 Pulse Oximetry 96 12/26/21 20:45 Oxygen Delivery Method 12/26/21 20:45 Course Orders Ordered: Discontinued Medications Diphtheria/Tetanus/Acell Pertussis (Tet,Diph,Pertuss(Acell),Vac/Pf 0.5 Ml Syringe) 0.5 ml IM .ONCE ONE Stop: 12/26/21 23:13 Last Admin: 12/26/21 23:55 Dose: 0.5 ml Documented By: NR Fluorescein Sodium (Fluorescein 1 Mg Strip) 1 mg EYE-RIGHT NOW ONE Stop: 12/26/21 23:13 Last Admin: 12/26/21 23:56 Dose: 1 mg Documented By: NR Ofloxacin (Ofloxacin 0.3% Ophth 5 Ml) 1 drops EYE-RIGHT NOW ONE Stop: 12/26/21 23:36 Last Admin: 12/26/21 23:57 Dose: 1 drops Documented By: NR Proparacaine HCl (Proparacaine 0.5% Ophth Mona) 1 drops EYE-RIGHT NOW ONE Stop: 12/26/21 23:13 Last Admin: 12/26/21 23:57 Dose: 1 drop Documented By: NR Vital Signs Vital signs: Vital Signs - 8 hr 12/26/21 20:45 Temperature 97.9 F Pulse Rate 62 Respiratory Rate 18 Blood Pressure 119/56 L Pulse Oximetry 96 Oxygen Delivery Method Room Air Discharge Plan Departure Patient Disposition: Home Clinical Impression: Corneal abrasion Instructions: Corneal Abrasion Activity Restrictions/Additional Instructions: *You have been diagnosed with [right eye corneal abrasion] *What to do: *Please use the diluted proparacaine 0.05%, 1-2 drops in your right eye every 30-60 minutes for pain *Use Ofloxacin 1-2 drops every 4 hours while awake until things feel better *Please follow up with your primary care provider in 2-3 days, call for an appointment. Let them know you were seen in the Emergency Department and that we ask that you be seen in follow up. We will electronically transmit a record of today's note if your PCP is in our system *If you do not have a primary care provider please contact the [facility] Resource line at [phone]. They will ask some questions about your medical history and help get you set up with a doctor in the community. *Return to Emergency Department if you should have any new, worsening or concerning symptoms, such as [fever greater than 101 F, shaking chills, worsening pain, persistent vomiting or other bothersome symptoms] Prescriptions: No Action aspirin 81 MG tablet,chewable 162 mg PO QDAY Qty: 30 diltiazem HCl 120 MG capsule,extended release 24hr 120 mg PO BID Qty: 180 0RF tamsulosin 0.4 mg Capsule 0.4 mg PO BEDTIME ibuprofen 200 mg Tablet 200 mg PO DAILY PRN (Reason: Pain) acetaminophen 325 mg Tablet 975 mg PO TID Qty: 40 0RF docusate sodium [DOK] 100 mg Capsule 100 mg PO BID Qty: 40 0RF ibuprofen 600 mg Tablet 600 mg PO Q6HR PRN (Reason: Fever/Mild Pain (1-3)) Qty: 40 0RF oxycodone 5 mg Tablet 5 mg PO Q3HR PRN (Reason: Pain, Moderate (4-6)) Qty: 60 0RF Referrals: Harrison Hernandez MD [Primary Care Provider] - Visit Report Forms: Patient Portal/API
[2021-12-26] MEDS: TET,DIPH,PERTUSS(ACELL),VAC/PF 0.5 ML SYRINGE IM (23:55)
[2021-12-26] MEDS: FLUORESCEIN 1 MG STRIP EYE-RIGHT (23:56)
[2021-12-26] MEDS: OFLOXACIN 0.3% OPHTH 5 ML 1 DROPS EYE-RIGHT (23:57)
[2021-12-26] MEDS: PROPARACAINE 0.5% OPHTH SOL 1 DROPS EYE-RIGHT (23:57)
== END 2021-12-26 23:59 | disposition home or self-care (01) ==
PROVIDERS: Emergency Provider Emergency Medicine; Family Provider Family Medicine; PCP Family Medicine
DX: S05.01XA Injury of conjunctiva and corneal abrasion without foreign body, right eye, initial encounter (principal); Z23 Encounter for immunization
CPT/HCPCS: 90471; 99283; 90715